=== PATIENT | female | born 2000 | race Caucasian/White ===

== ENCOUNTER 2021-11-15 13:13 | Emergency (ER) | payer OTHER ==
[~2021-11-15 13:13] MED LIST: ONDANSETRON ODT4 MG PO; PEPCID AC20 MG PO
[2021-11-15 15:17] LABS: BASOPHIL 0.5 % (0-2); EOSINOPHIL 1.3 % (0-5); HCT 39.6 % (37.0-47.0); HGB 12.4 g/dl (12.5-16.0); LYMPHOCYTE 20.4 % (15-48); MCH 25.1 pg (25.0-31.0); MCHC 31.3 g/dL (32.0-36.0); MCV 80.2 fL (78.0-100.0); MONOCYTE 6.8 % (0-12); MPV 8.9 fL (6.0-9.5); NEUTROPHIL 70.6 % (41-80); NRBC 0; PLT 351 K/uL (150-400); RBC 4.94 M/uL (4.20-5.40); RDW 13.2 % (11.5-14.0); WBC 10.9 K/uL (4.0-10.5)
[2021-11-15 15:32] LABS: BUN/CREAT RATIO (CALC) 10.9 RATIO; CREATININE 0.55 mg/dL (0.51-0.95); POTASSIUM 3.7 mmol/L (3.5-5.1)
== END 2021-11-15 16:22 | disposition home or self-care (01) ==
LOC: FER 13:13
PROVIDERS: Nurse Practitioner Family
DX: U07.1 COVID-19 (principal); R55 Syncope and collapse
CPT/HCPCS: 36415; 70450; 72125; 80048; 85025; U0002